=== PATIENT | female | born 1965 | race Caucasian/White ===

== ENCOUNTER 2017-08-21 18:40 | Emergency (ER) | payer MEDICAID ==
[~2017-08-21] VITALS: Ht 157.5 cm; Wt 83.9 kg
[2017-08-21 21:33] LABS: BASOPHIL % 0.7 % (0-2); PLATELET COUNT 301 x10^3mcL (130-400)
[2017-08-21 21:34] LABS: RED CELL DISTRIBUTION WIDTH 19.3 % (11.5-14.5)
[2017-08-21 21:43] LABS: CALCIUM 8.4 mg/dL (8.5-10.1); CARBON DIOXIDE 24.5 mmol/L (21-32); CHLORIDE SERUM 105 mmol/L (98-107); CREATININE SERUM 0.8 mg/dL (0.6-1.0); GFR1 > 60 mL/min; GLUCOSE SERUM 90 mg/dL (74-106); POTASSIUM SERUM 3.4 mmol/L (3.5-5.1); SODIUM SERUM 140 mmol/L (136-145)
[2017-08-21 21:47] LABS: ALKALINE PHOSPHATASE 50 U/L (46-116); ALT/SGPT 19 U/L (14-59); AMYLASE 44 U/L (25-115); AST/SGOT 16 U/L (15-37); BILIRUBIN TOTAL 0.2 mg/dL (0.20-1.00); LIPASE 159 IU/L (73-393); TOTAL PROTEIN, SERUM 6.8 g/dL (6.4-8.2)
[2017-08-21 21:50] LABS: ALBUMIN 3.2 g/dL (3.4-5.0)
[2017-08-22 00:04] VITALS: BP 142/72
== END 2017-08-22 00:04 | disposition home or self-care (01) ==
LOC: ED 18:40
PROVIDERS: Emergency Medicine
DX: R10.84 Generalized abdominal pain (principal); D64.9 Anemia, unspecified
CPT/HCPCS: 83880; J2270; J2405; J3010

== ENCOUNTER 2018-05-20 02:09 | Emergency (ER) | payer MEDICAID ==
[~2018-05-20] VITALS: Ht 160 cm; Wt 81.6 kg
[2018-05-20 02:18] VITALS: Ht 160 cm; Wt 81.6 kg
[2018-05-20 04:16] VITALS: BP 137/83
== END 2018-05-20 05:11 | disposition home or self-care (01) ==
LOC: ED 02:09
DX: G43.909 Migraine, unspecified, not intractable, without status migrainosus (principal)
CPT/HCPCS: J1200; J1885; J2765; J7030

== ENCOUNTER 2018-12-18 08:12 | Inpatient (IN) | payer MEDICAID ==
[~2018-12-18] VITALS: Ht 160 cm; Wt 82.3 kg
[2018-12-18 08:16] VITALS: Ht 160 cm; Wt 82.3 kg
[2018-12-18 08:53] LABS: BASOPHIL % 0.6 % (0-2); PLATELET COUNT 281 x10^3mcL (130-400)
[2018-12-18 09:03] LABS: CALCIUM 8.7 mg/dL (8.5-10.1); CARBON DIOXIDE 28.8 mmol/L (21-32); CHLORIDE SERUM 105 mmol/L (98-107); GFR1 > 60 mL/min; GLUCOSE SERUM 101 mg/dL (74-106); POTASSIUM SERUM 4.8 mmol/L (3.5-5.1); SODIUM SERUM 139 mmol/L (136-145)
[2018-12-18 09:04] LABS: RED CELL DISTRIBUTION WIDTH 14.9 % (11.5-14.5)
[2018-12-18 09:08] LABS: ALBUMIN 3.6 g/dL (3.4-5.0); ALKALINE PHOSPHATASE 48 U/L (46-116); ALT/SGPT 15 U/L (14-59); AMYLASE 54 U/L (25-115); AST/SGOT 11 U/L (15-37); BILIRUBIN TOTAL 0.2 mg/dL (0.20-1.00); HDL CHOLESTEROL 47 mg/dL (40-60); LIPASE 157 IU/L (73-393); TOTAL PROTEIN, SERUM 7.5 g/dL (6.4-8.2)
[2018-12-18 09:37] LABS: CHOLESTEROL 209 mg/dL (<200)
[2018-12-18 09:50] LABS: UA SPECIFIC GRAVITY <=1.005 (1.005-1.035); microscopic required? YES; urine erythrocyte 3+ (NEGATIVE)
[2018-12-18 10:08] LABS: AMPHETAMINE QUAL UR NONE DETECTED (See below)
[2018-12-18] MEDS ORDERED: LISINOPRIL10 MG PO (11:18)
[2018-12-18] MEDS ORDERED: NOR5 PO (11:18)
[2018-12-18] MEDS ORDERED: NOR10 PO (11:18)
[2018-12-18 12:47] VITALS: BP 135/72
[2018-12-18 13:30] VITALS: BP 128/72
[2018-12-18 13:52] LABS: CHOLESTEROL/HDL RATIO 4.4
[2018-12-18 16:35] VITALS: BP 143/92
[2018-12-18 20:38] VITALS: BP 130/66
[2018-12-19 05:43] VITALS: BP 113/70
[2018-12-19 07:32] LABS: BASOPHIL % 0.7 % (0-2); PLATELET COUNT 253 x10^3mcL (130-400)
[2018-12-19 07:33] LABS: RED CELL DISTRIBUTION WIDTH 14.8 % (11.5-14.5)
[2018-12-19 07:43] LABS: CALCIUM 8.4 mg/dL (8.5-10.1); CHLORIDE SERUM 106 mmol/L (98-107); CREATININE SERUM 0.9 mg/dL (0.6-1.0); GFR1 > 60 mL/min; GLUCOSE SERUM 89 mg/dL (74-106); POTASSIUM SERUM 3.6 mmol/L (3.5-5.1); SODIUM SERUM 139 mmol/L (136-145)
[2018-12-19 08:00] VITALS: BP 130/76
[2018-12-19 13:00] VITALS: BP 111/68
[2018-12-19 17:00] VITALS: BP 112/69
[2018-12-19 20:37] VITALS: BP 115/64
[2018-12-20 06:01] VITALS: BP 113/66
[2018-12-20 08:16] VITALS: BP 125/78
[2018-12-20] MEDS ORDERED: PROTONIX20 MG PO (09:48)
[2018-12-20 12:56] VITALS: BP 147/77
[2018-12-20 18:30] VITALS: BP 142/83
== END 2018-12-20 20:51 | disposition short-term general hospital (02) | DRG 203 ==
LOC: ED 08:12 → DU 11:16
PROVIDERS: Emergency Medicine; Internal Medicine; ADMIT Internal Medicine
PROC: 0DB78ZX Excision of Stomach, Pylorus, Via Natural or Artificial Opening Endoscopic, Diagnostic (ICD-10-PCS; 2018-12-20)
PROC: 0DB48ZX Excision of Esophagogastric Junction, Via Natural or Artificial Opening Endoscopic, Diagnostic (ICD-10-PCS; principal; 2018-12-20 07:30)
DX: R07.9 Chest pain, unspecified (principal); I10 Essential (primary) hypertension; N39.0 Urinary tract infection, site not specified; Z68.31 Body mass index [BMI] 31.0-31.9, adult
CPT/HCPCS: 43239; 83880; A9500; C9113; J1200; J1610; J1885; J1956; J2250; J2310; J2405; J2785; J3010; J3490; J7030; J7040; Q0092

== ENCOUNTER 2019-03-11 08:30 | Emergency (ER) | payer MEDICAID ==
[~2019-03-11] VITALS: Ht 157.5 cm; Wt 81.6 kg
[~2019-03-11 08:30] MED LIST: LISINOPRIL10 MG PO; NOR10 PO; NOR5 PO; PROTONIX20 MG PO
[2019-03-11 08:42] VITALS: Ht 157.5 cm; Wt 81.6 kg
[2019-03-11 09:52] LABS: BASOPHIL % 1.2 % (0-2); PLATELET COUNT 246 x10^3mcL (130-400); RED CELL DISTRIBUTION WIDTH 15.3 % (11.5-14.5)
[2019-03-11 10:00] LABS: CALCIUM 8.8 mg/dL (8.5-10.1); CHLORIDE SERUM 103 mmol/L (98-107); CREATININE SERUM 0.8 mg/dL (0.6-1.0); GFR1 > 60 mL/min; GLUCOSE SERUM 114 mg/dL (74-106); POTASSIUM SERUM 3.9 mmol/L (3.5-5.1); SODIUM SERUM 138 mmol/L (136-145)
[2019-03-11 10:05] LABS: ALBUMIN 3.7 g/dL (3.4-5.0); ALKALINE PHOSPHATASE 54 U/L (46-116); ALT/SGPT 39 U/L (14-59); AST/SGOT 21 U/L (15-37); BILIRUBIN TOTAL 0.28 mg/dL (0.20-1.00); LIPASE 138 IU/L (73-393); TOTAL PROTEIN, SERUM 7.8 g/dL (6.4-8.2)
[2019-03-11 11:58] VITALS: BP 154/93
== END 2019-03-11 11:56 | disposition home or self-care (01) ==
LOC: ED 08:30
PROVIDERS: Emergency Medicine
DX: G44.209 Tension-type headache, unspecified, not intractable (principal); I10 Essential (primary) hypertension
CPT/HCPCS: J1885; J2405; J7030

== ENCOUNTER 2019-08-22 04:46 | Emergency (ER) | payer MEDICAID ==
[~2019-08-22] VITALS: Ht 157.5 cm; Wt 85.7 kg
[2019-08-22 04:53] VITALS: Ht 157.5 cm; Wt 85.7 kg
[2019-08-22 05:52] LABS: BASOPHIL % 1.1 % (0-2); PLATELET COUNT 282 x10^3mcL (130-400)
[2019-08-22 05:56] LABS: CALCIUM 8.6 mg/dL (8.5-10.1); CARBON DIOXIDE 27.9 mmol/L (21-32); CHLORIDE SERUM 105 mmol/L (98-107); CREATININE SERUM 0.8 mg/dL (0.6-1.0); GFR1 > 60 mL/min; GLUCOSE SERUM 120 mg/dL (74-106); POTASSIUM SERUM 3.7 mmol/L (3.5-5.1); SODIUM SERUM 141 mmol/L (136-145)
[2019-08-22 05:59] LABS: RED CELL DISTRIBUTION WIDTH 15.1 % (11.5-14.5)
[2019-08-22 06:03] LABS: ALBUMIN 3.8 g/dL (3.4-5.0); ALKALINE PHOSPHATASE 60 U/L (46-116); ALT/SGPT 28 U/L (14-59); AST/SGOT 15 U/L (15-37); BILIRUBIN TOTAL 0.41 mg/dL (0.20-1.00); LIPASE 177 IU/L (73-393); TOTAL PROTEIN, SERUM 7.6 g/dL (6.4-8.2)
[2019-08-22 08:09] VITALS: BP 145/77
== END 2019-08-22 08:05 | disposition home or self-care (01) ==
LOC: ED 04:46
PROVIDERS: Emergency Medicine
DX: G89.29 Other chronic pain (principal); R10.12 Left upper quadrant pain; K29.70 Gastritis, unspecified, without bleeding; R51 Headache
CPT/HCPCS: J0780; J2270; J3490; J7030; Q0162

== ENCOUNTER 2021-01-22 14:51 | Emergency (ER) | payer MEDICAID ==
[~2021-01-22] VITALS: Ht 157.5 cm; Wt 81.6 kg
[2021-01-22 15:12] VITALS: Ht 157.5 cm; Wt 81.6 kg
[2021-01-22] MEDS ORDERED: ULTRAM50 MG PO (17:14)
[2021-01-22] MEDS ORDERED: NAPROXEN375 MG PO (17:14)
[2021-01-22 17:32] VITALS: BP 133/72
== END 2021-01-22 17:32 | disposition home or self-care (01) ==
LOC: ED 14:51
DX: S46.912A Strain of unspecified muscle, fascia and tendon at shoulder and upper arm level, left arm, initial encounter (principal); I10 Essential (primary) hypertension; X58.XXXA Exposure to other specified factors, initial encounter; Y93.89 Activity, other specified; Y92.89 Other specified places as the place of occurrence of the external cause; Y99.8 Other external cause status
CPT/HCPCS: J1885